=== PATIENT | male | born 1980 | race Caucasian/White ===

== ENCOUNTER 2018-02-18 08:00 | Emergency (ER) | payer BC ==
[2018-02-18 08:35] VITALS: BP 119/82
--- NOTE | 2018-02-18 09:53 | UC ---
Abdominal Pain Male HPI - HPI Summary HPI Summary: The patient is a 38-year-old male with the onset of right lower quadrant abdominal pain about 6 AM this morning. Completely pain-free at rest. He experiences pain if he twists or flexes. The onset of the pain was after using a treadmill. No fever or chills she has no nausea vomiting or diarrhea. He has no change in bowel habits. He denies any urinary symptoms. - History of Current Complaint Chief Complaint: UCAbdominalPain Stated Complaint: LOWER ABDOMINAL PAIN Time Seen by Provider: 02/18/18 09:41 Hx Obtained From: Patient Onset/Duration: Gradual Onset Timing: Intermittent Episodes Lasting: - while twisting abdomen Severity Initially: Moderate Severity Currently: None Pain Intensity: 0 Pain Scale Used: 0-10 Numeric Location: Discrete At: RLQ Radiates: No Character: Sharp Aggravating Factor(s): Movement Alleviating Factor(s): Rest Associated Signs And Symptoms: Positive: Negative - Allergies/Home Medications Allergies/Adverse Reactions: Allergies Allergy/AdvReac Type Severity Reaction Status Date / Time No Known Allergies Allergy Verified 02/18/18 08:30 Home Medications: Home Medications Ibuprofen TAB* [Advil TAB*] 600 mg PO Q6H PRN 02/18/18 [History Confirmed ] NK [No Home Medications Reported] 02/18/18 [History Confirmed 02/18/18] PMH/Surg Hx/FS Hx/Imm Hx Previously Healthy: Yes - Surgical History Surgical History: Yes Surgery Procedure, Year, and Place: Vasectomy, 2017, [place]; T&A, ~1985, [place] - Family History Known Family History: Positive: Hypertension - Social History Alcohol Use: Occasionally Substance Use Type: None Smoking Status (MU): Never Smoked Tobacco Review of Systems All Other Systems Reviewed And Are Negative: Yes Constitutional: Positive: Negative Skin: Positive: Negative Eyes: Positive: Negative ENT: Positive: Negative Respiratory: Positive: Negative Cardiovascular: Positive: Negative Gastrointestinal: Positive: Abdominal Pain Genitourinary: Positive: Negative Motor: Positive: Negative Neurovascular: Positive: Negative Musculoskeletal: Positive: Negative Neurological: Positive: Negative Psychological: Positive: Negative Physical Exam Triage Information Reviewed: Yes Appearance: Well-Appearing, No Pain Distress, Well-Nourished Vital Signs: Initial Vital Signs Temp 97.9 F 02/18/18 08:28 Pulse 58 02/18/18 08:28 Resp 16 02/18/18 08:28 BP 119/82 02/18/18 08:28 Pulse Ox 100 02/18/18 08:28 Vital Signs Reviewed: Yes Eyes: Positive: Conjunctiva Clear ENT: Positive: Hearing grossly normal. Negative: Nasal congestion, Nasal drainage, Muffled voice, Hoarse voice Neck: Positive: Supple, Nontender Respiratory: Positive: Lungs clear, Normal breath sounds, No respiratory distress, No accessory muscle use Cardiovascular: Positive: RRR, No Murmur, Pulses Normal Abdomen Description: Positive: Nontender, No Organomegaly, Other: - able to jump up and down without pain/hurts to twist torso to left/-psoas-oburator. Negative: CVA Tenderness (R), CVA Tenderness (L) Bowel Sounds: Positive: Present Musculoskeletal: Positive: ROM Intact, No Edema Neurological: Positive: Alert Psychological Exam: Normal Skin Exam: Normal Diagnostics - Laboratory Diagnostic Studies Completed/Ordered: UA (-) Abd Pain Male Course/Dx - Course Course Of Treatment: suspect abdominal wall strain - Differential Dx/Clinical Impression Provider Diagnosis: Acute abdominal pain Discharge - Sign-Out/Discharge Documenting (check all that apply): Patient Departure All imaging exams completed and their final reports reviewed: No Studies - Discharge Plan Condition: Stable Disposition: HOME Patient Education Materials: Acute Abdominal Pain (ED) Referrals: Figueroa Botello DO [Primary Care Provider] - If Needed Additional Instructions: I find nothing on your current exam to suggest appendicitis I suggest you go the the ER for: worsening pain pain at rest fever vomiting if you are unable to jump up and down without pain - Billing Disposition and Condition Condition: STABLE Disposition: Home
== END 2018-02-18 09:58 | disposition home or self-care (01) ==
LOC: UCCORT 08:00
DX: R10.31 Right lower quadrant pain (principal)
CPT/HCPCS: 81003; 99201; G0463